=== PATIENT | male | born 1950 | race Caucasian/White ===

== ENCOUNTER 2017-05-13 14:28 | Emergency (ER) | payer MEDICARE, MEDICAID ==
[2017-05-13] MEDS ORDERED: HYDROcodone/Acetaminophen 10/325 mg Tablet ONE (15:07)
--- NOTE | 2017-05-13 15:31 | RAD ---
LEFT TOE THREE VIEW 05/13/17 HISTORY: Pain, ulcer. COMPARISON: None. FINDINGS: There is soft tissue swelling of the distal phalanx of the great toe. Mild interphalangeal joint space disease. No erosions or periostitis. IMPRESSION: Soft tissue swelling without definite radiographic evidence of osteomyelitis. MRI should be obtained if clinical symptoms warrant. POS: [facility]
== END 2017-05-13 17:40 | disposition home or self-care (01) ==
LOC: ERS 14:28
DX: L03.032 Cellulitis of left toe (principal); E11.9 Type 2 diabetes mellitus without complications; E78.5 Hyperlipidemia, unspecified; I47.1 Supraventricular tachycardia; J44.9 Chronic obstructive pulmonary disease, unspecified; I11.0 Hypertensive heart disease with heart failure; I50.9 Heart failure, unspecified; G47.00 Insomnia, unspecified; F31.9 Bipolar disorder, unspecified; F17.299 Nicotine dependence, other tobacco product, with unspecified nicotine-induced disorders; I25.10 Atherosclerotic heart disease of native coronary artery without angina pectoris; I25.2 Old myocardial infarction
CPT/HCPCS: 87040

== ENCOUNTER 2022-05-22 10:50 | Outpatient (CLI) | payer MEDICARE, OTHER | END 2022-05-22 10:51 | disposition home or self-care (01) | LOC: RAD 10:50 | DX: R63.30 Feeding difficulties, unspecified (principal); R13.12 Dysphagia, oropharyngeal phase; I69.991 Dysphagia following unspecified cerebrovascular disease | CPT/HCPCS: 74230 ==